=== PATIENT | female | born 2000 | race Caucasian/White ===

== ENCOUNTER 2020-03-06 03:39 | Inpatient (IN) ==
[2020-03-06] MEDS ORDERED: Ondansetron 4 MG/2 ML VIAL IVP PRN (03:51)
[2020-03-06] MEDS ORDERED: Famotidine 20 MG/2 ML VIAL IVP PRN (03:51)
[2020-03-06] MEDS ORDERED: Metoclopramide 10 MG/2 ML VIAL IVP PRN (03:51)
[2020-03-06] MEDS ORDERED: Azithromycin 500 MG in 0.9 % Sodium Chloride 250 ML IVPB ONE (03:51)
[2020-03-06] MEDS ORDERED: *HR* FentaNYL (PF) 100 MCG/2 ML VIAL IVP PRN (03:51)
[2020-03-06] MEDS ORDERED: Naloxone 0.4 MG/ML INJ IVP PRN (03:51)
[2020-03-06] MEDS ORDERED: Lidocaine 1% 20 ML MDV INFILT PRN (03:51)
[2020-03-06] MEDS ORDERED: miSOPROStoL 25 MCG TABLET PO ONE (03:54)
[2020-03-06 04:28] LABS: Basophils % 0.2 %; Eosinophils # 0.1 K/mcL (0.0-0.6); Eosinophils % 0.5 %; Hemoglobin 13.2 g/dL (11.5-15.4); Immature Granulocytes % 0.5 % (0-4); Lymphocytes # 2.3 K/mcL (0.6-4.6); Lymphocytes % 19.5 %; Mean Corpuscular HGB Conc 34.7 g/dL (31.6-35.5); Mean Corpuscular Hemoglobin 30.5 pg (28.0-33.3); Mean Corpuscular Volume 87.8 fL (83.0-100.0); Mean Platelet Volume 10.3 fL (9.4-12.4); Monocytes # 0.7 K/mcL (0.0-1.3); Monocytes % 5.6 %; Neutrophils # 8.6 K/mcL (1.6-8.9); Platelet Count 259 K/mcL (140-400); Red Blood Count 4.33 M/mcL (3.82-4.97); Red Cell Distribution Width 13.1 % (11.5-14.5); Segmented Neutrophils % 73.7 %; White Blood Count 11.7 K/mcL (4.3-11.1)
[2020-03-06 04:36] LABS: Amphetamine Screen,Urine Negative ng/mL (Cutoff=1000); Barbiturate Screen,Urine Negative ng/mL (Cutoff=200); Benzodiazepines Screen,Urine Negative ng/mL (Cutoff=200); Cannabinoid Screen,Urine Negative ng/mL (Cutoff = 50); Cocaine Screen,Urine Negative ng/mL (Cutoff= 300); Opiate Screen,Urine Negative ng/mL (Cutoff=300); Phencyclidine Screen,Urine Negative ng/mL (Cutoff=25)
[2020-03-06] MEDS: Ringers Solution, Lactated 1,000 ML IVC SCH ×2 (06:57→20:11)
[2020-03-06] MEDS ORDERED: Ropivacaine/PF 0.2% 20 ML VIAL EP ONE (09:38)
[2020-03-06] MEDS ORDERED: *HR* FentaNYL (PF) 100 MCG/2 ML VIAL EP ONE (09:38)
[2020-03-06] MEDS ORDERED: EPHEDrine 50 MG/ML VIAL IVP PRN (09:38)
[2020-03-06] MEDS ORDERED: Ropivacaine/PF 0.2% 20 ML VIAL ONE (09:44)
[2020-03-06] MEDS ORDERED: *HR* FentaNYL (PF) 100 MCG/2 ML VIAL ONE (09:44)
[2020-03-06] MEDS ORDERED: miSOPROStoL 25 MCG TABLET PO STA (10:47)
[2020-03-06] MEDS ORDERED: Oxytocin 20 units/ LR 1000 mL 20 UNIT/1,000 ML BAG IVC ONE (11:45)
[2020-03-06] MEDS ORDERED: Oxytocin 20 units/ LR 1000 mL 20 UNIT/1,000 ML BAG IVC SCH (11:45)
[2020-03-06] MEDS: Epidural Premix (fent/bupiv) 110 ML EP SCH (20:11)
[2020-03-06] MEDS ORDERED: Acetaminophen 325 MG TABLET PO ONE (23:31)
[2020-03-07] MEDS ORDERED: *HR* FentaNYL (PF) 100 MCG/2 ML VIAL ONE (02:31)
[2020-03-07] MEDS ORDERED: ceFAZolin 2,000 MG in 0.9 % Sodium Chloride 100 ML IVPB SCH (03:00)
[2020-03-07] MEDS ORDERED: CeFAZolin 2,000 MG/50 ML BAG IVPB SCH (03:15)
[2020-03-07] MEDS: Epidural Premix (fent/bupiv) 110 ML EP SCH (04:03)
[2020-03-07] MEDS ORDERED: Acetaminophen 325 MG TABLET PO PRN (08:33)
[2020-03-07] MEDS ORDERED: Oxytocin 20 units/ LR 1000 mL 20 UNIT/1,000 ML BAG IVC SCH (08:33)
[2020-03-07] MEDS ORDERED: Benzocaine/Menthol 56 GM AEROSOL SPRAY TP PRN (08:33)
[2020-03-07] MEDS ORDERED: Lanolin 7 G OINT...G. TP PRN (08:33)
[2020-03-07] MEDS: Prenatal Vit/FA 1 EACH TABLET PO SCH (09:06)
[2020-03-07] MEDS: Ibuprofen 600 MG TABLET PO PRN ×2 (09:06→18:10)
[2020-03-07] MEDS ORDERED: Methylergonovine 0.2 MG/ML AMPUL IM ONE (14:04)
[2020-03-08] MEDS: Ibuprofen 600 MG TABLET PO PRN (05:56)
[2020-03-08] MEDS: Prenatal Vit/FA 1 EACH TABLET PO SCH (08:25)
[2020-03-08 08:37] VITALS: BP 102/67
== END 2020-03-08 14:05 | disposition home or self-care (01) | DRG 806 ==
LOC: 1NENULAB 03:39 → 1NENUOBS 03-07 08:32
PROVIDERS: ADMIT Registered Nurse; ATTEND Registered Nurse

== ENCOUNTER → 2021-10-09 20:15 | Observation (INO) ==
[2021-10-09 19:19] LABS: Bilirubin,Urine Negative (Negative); Blood,Urine Negative (Negative); Calcium Oxalate Crystals,Urine Present per hpf; Clarity,Urine Turbid (Clear); Color,Urine Yellow (Yellow); Glucose,Urine (UA) Normal (Normal); Ketones,Urine 10 mg/dL (Negative); Leukocyte Esterase,Urine Small (Negative); Mucus,Urine Few per lpf (None-Few); Nitrite,Urine Negative (Negative); PH,Urine 5.5 pH Units (5.0-8.0); Protein,Urine 30 mg/dL (Neg-Trace); Specific Gravity,Urine 1.026 (1.010-1.025); Squamous Epithelial Cell,Urine Many per hpf (None-Few); Urobilinogen,Urine Normal (Normal)
[2021-10-09 19:25] LABS: Protein/Creatinine Ratio,Urine 0.16 mg/mg (0.00-0.20)
[2021-10-09 19:27] LABS: Basophils % 0.2 %; Eosinophils # 0.1 K/mcL (0.0-0.6); Eosinophils % 0.6 %; Hemoglobin 12.3 g/dL (11.5-15.4); Immature Granulocytes % 0.5 % (0-4); Lymphocytes # 2.6 K/mcL (0.6-4.6); Lymphocytes % 20.4 %; Mean Corpuscular HGB Conc 34.2 g/dL (31.6-35.5); Mean Corpuscular Hemoglobin 30.3 pg (28.0-33.3); Mean Corpuscular Volume 88.7 fL (83.0-100.0); Mean Platelet Volume 10.1 fL (9.4-12.4); Monocytes # 0.6 K/mcL (0.0-1.3); Monocytes % 4.6 %; Neutrophils # 9.5 K/mcL (1.6-8.9); Platelet Count 281 K/mcL (140-400); Red Blood Count 4.06 M/mcL (3.82-4.97); Red Cell Distribution Width 13.2 % (11.5-14.5); Segmented Neutrophils % 73.7 %; White Blood Count 12.9 K/mcL (4.3-11.1)
[2021-10-09 19:37] LABS: Alanine Aminotransferase 12 Units/L (7-52); Aspartate Amino Transferase 12 Units/L (13-39); BUN/Creatinine Ratio 13 (6-26); Blood Urea Nitrogen 6 mg/dL (6-20); Lactate Dehydrogenase 115 Units/L (140-271); Uric Acid 4.3 mg/dL (2.3-7.6); eGFR For African Americans > 60 (> 60); eGFR For Non-African Americans > 60 (> 60)
== END | disposition home or self-care (01) ==
LOC: 1NENULAB
PROVIDERS: ADMIT Advanced Practice Midwife; ATTEND Advanced Practice Midwife

== ENCOUNTER 2021-12-21 06:04 | Inpatient (IN) ==
[2021-12-21] MEDS ORDERED: Ondansetron 4 MG/2 ML VIAL IVP PRN (06:53)
[2021-12-21] MEDS ORDERED: Famotidine 20 MG/2 ML VIAL IVP PRN (06:53)
[2021-12-21] MEDS ORDERED: Metoclopramide 10 MG/2 ML VIAL IVP PRN (06:53)
[2021-12-21] MEDS ORDERED: Azithromycin 500 MG in 0.9 % Sodium Chloride 250 ML IVPB PRN (06:53)
[2021-12-21] MEDS ORDERED: miSOPROStoL 25 MCG TABLET PO PRN (06:53)
[2021-12-21] MEDS ORDERED: Naloxone 0.4 MG/ML INJ IVP PRN (06:53)
[2021-12-21] MEDS ORDERED: Oxytocin 30 UNIT/503 ML BAG IVC SCH ×2 (07:00→22:57)
[2021-12-21 07:18] LABS: Basophils % 0.3 %; Eosinophils # 0.1 K/mcL (0.0-0.6); Hematocrit 37.8 % (35.3-44.9); Immature Granulocytes % 0.4 % (0-4); Lymphocytes # 2.6 K/mcL (0.6-4.6); Lymphocytes % 27.8 %; Mean Corpuscular HGB Conc 34.4 g/dL (31.6-35.5); Mean Corpuscular Hemoglobin 30.2 pg (28.0-33.3); Mean Corpuscular Volume 87.7 fL (83.0-100.0); Mean Platelet Volume 10.3 fL (9.4-12.4); Monocytes # 0.7 K/mcL (0.0-1.3); Monocytes % 7.2 %; Neutrophils # 5.9 K/mcL (1.6-8.9); Platelet Count 254 K/mcL (140-400); Red Blood Count 4.31 M/mcL (3.82-4.97); Red Cell Distribution Width 13.4 % (11.5-14.5); Segmented Neutrophils % 63.3 %; White Blood Count 9.4 K/mcL (4.3-11.1)
[2021-12-21] MEDS ORDERED: Ropivacaine/PF 0.2% 20 ML VIAL EP ONE (07:19)
[2021-12-21] MEDS ORDERED: *HR* FentaNYL (PF) 100 MCG/2 ML VIAL EP ONE (07:19)
[2021-12-21] MEDS ORDERED: EPHEDrine 50 MG/ML VIAL IVP PRN (07:19)
[2021-12-21 07:53] LABS: Influenza A PCR Negative (Negative); Influenza B PCR Negative (Negative); Resp. Syncytial Virus PCR Negative (Negative)
[2021-12-21 07:55] LABS: SARS-CoV-2 by PCR (In House) Negative (Negative)
[2021-12-21 09:24] LABS: Amphetamine Screen,Urine Negative ng/mL (Cutoff=1000); Barbiturate Screen,Urine Negative ng/mL (Cutoff=200); Benzodiazepines Screen,Urine Negative ng/mL (Cutoff=200); Cannabinoid Screen,Urine Negative ng/mL (Cutoff = 50); Cocaine Screen,Urine Negative ng/mL (Cutoff= 300); Opiate Screen,Urine Negative ng/mL (Cutoff=300); Phencyclidine Screen,Urine Negative ng/mL (Cutoff=25)
[2021-12-21] MEDS: Ringers Solution, Lactated 1,000 ML IVC SCH ×2 (12:25→13:33)
[2021-12-21] MEDS: Epidural Premix (fent/bupiv) 110 ML EP SCH ×2 (13:03→19:43)
[2021-12-21] MEDS ORDERED: Ibuprofen 600 MG TABLET PO ONE (21:34)
[2021-12-21] MEDS ORDERED: Lanolin 7 G OINT...G. TP PRN (22:57)
[2021-12-21] MEDS ORDERED: Ondansetron ODT 4 MG TAB.RAPDIS SL PRN (22:57)
[2021-12-21] MEDS ORDERED: Benzocaine/Menthol 56 GM AEROSOL SPRAY TP PRN (22:57)
[2021-12-22] MEDS: Acetaminophen 325 MG TABLET PO SCH ×3 (00:06→17:32)
[2021-12-22] MEDS: Prenatal Vit/FA 1 EACH TABLET PO SCH (08:36)
[2021-12-22] MEDS: Ibuprofen 600 MG TABLET PO SCH ×2 (08:36→17:31)
[2021-12-22 20:10] VITALS: O2SAT 98
[2021-12-23] MEDS: Ibuprofen 600 MG TABLET PO SCH ×2 (00:06→09:27)
[2021-12-23] MEDS: Acetaminophen 325 MG TABLET PO SCH ×2 (00:06→09:28)
[2021-12-23 07:22] VITALS: BP 101/66; PULSE 78; TEMP 98.1
[2021-12-23] MEDS: Prenatal Vit/FA 1 EACH TABLET PO SCH (09:27)
== END 2021-12-23 12:16 | disposition home or self-care (01) | DRG 560 ==
LOC: 1NENULAB 06:04 → 1NENUOBS 22:56
PROVIDERS: ADMIT Registered Nurse; ATTEND Registered Nurse